=== PATIENT | male | born 1985 | race Caucasian/White ===

== ENCOUNTER 2023-01-12 15:45 | Emergency (ER) | payer BC, SELFPAY ==
[2023-01-12 15:46] VITALS: BP 159/89; PULSE 110; RESP 14; TEMP 36.4; O2SAT 97; BMI 34.2
--- NOTE | 2023-01-12 16:36 | EDS_ITS ---
HPI History of Present Illness Chief Complaint: Lower Extremity Injury Detail of Chief Complaint: Right leg pain and swelling Informant: patient Narrative Narrative: Patient presents secondary to right leg pain and swelling with concern for blood clot. Patient has a history of a DVT in his left leg years ago after a dental procedure. He states he was on Xarelto for 3 months. Eight days ago he noted similar pain in his right thigh. He states that seem to subside during the week and then returned over the weekend. He called his PCP today who referred him to the ER due to concern for recurrent blood clot. Patient does note that he has had problems with an ingrown toenail on his right great toe over the last 6 or 7 months. He already trimmed the toenail back but the area is swollen and he has noted drainage from it. [facility] Medical History benign cyst on chin Bronchitis DVT (deep venous thrombosis) Heart murmur Hypertension Strep pharyngitis Home Medications amoxicillin 875 mg-potassium clavulanate 125 mg tablet 1 tab PO BID #20 tabs 11/27/22 [Rx Last Taken Unknown] prednisone 20 mg tablet 40 mg PO DAILY #20 tabs 11/27/22 [Rx Last Taken Unknown] doxycycline monohydrate 100 mg capsule 100 mg PO BID #20 CAPSULES 01/12/23 [Rx Last Taken Unknown] Allergy/AdvReac Type Severity Reaction Status Date / Time No Known Allergies Allergy Verified 01/12/23 15:47 Family History Grandmother CAD (coronary artery disease) Grandfather CVA (cerebral vascular accident) Cancer Diabetes Father Cancer Colon cancer Hypertension Brother Seizures Social History Smoking Status: Never smoker ROS ROS ED Constitutional Constitutional ED: Denies chills or fever(s) Eyes Eyes: Denies change in vision or discharge from eye(s) ENT ENT ED: Denies discharge from eye(s), rhinorrhea or sore throat Cardiovascular Cardiovascular: Denies chest pain or palpitations Respiratory/Chest Respiratory/Chest: Denies cough or dyspnea Gastrointestinal Gastrointestinal: Denies abdominal pain, nausea or vomiting Musculoskeletal Musculoskeletal: Reports extremity pain; Denies back pain Integumentary Denies Abrasions or rash Neurologic Neurologic: Denies headache(s) or weakness Psychiatric Psychiatric: Denies anxiety or depression Allergic/Immunologic Allergic/Immunologic ED: Denies lip swelling or urticaria EXAM Physical Exam Const Vital Signs: 01/12/23 15:46 Temperature 97.6 F L Temperature Source Temporal Pulse Rate 110 H Respiratory Rate 14 Blood Pressure 159/89 H Blood Pressure Mean 112 Pulse Ox 97 Oxygen Delivery Method Room Air Positive well nourished and well developed General Appearance ED: well developed HEENT Reports normocephalic and head/scalp atraumatic Eyes PERRL and EOMs intact bilaterally Neck supple Chest Wall inspection of chest normal and palpation of chest normal Resp normal respiratory effort and clear to auscultation bilaterally Cardio regular rate and regular rhythm GI normal to inspection, nondistended, normoactive bowel sounds Palpation: soft Extremity Extremity Narrative: Mild bilateral lower extremity edema. No focal tenderness or palpable cords. Strong distal pulses. Right great toe is swollen. Ingrown toenail has already been trimmed back. No drainage at this time. Neuro oriented x3 and no sensory deficits noted Sensorium / Orientation: alert Motor Exam: strength 5/5 throughout Psych mental status grossly normal MDM MDM MDM Narrative Medical decision making narrative: Venous ultrasound of the right leg obtained to evaluate for DVT. Right foot x- ray obtained given the great toe infection to ensure no bony involvement. Lab work obtained to evaluate for leukocytosis or electrolyte derangement. Lab Data Attestation: I reviewed the patient's lab results. Labs: Laboratory Results - last 24 hr 01/12/23 01/12/23 16:40 16:40 WBC 8.0 RBC 5.15 Hgb 15.0 Hct 44.7 MCV 86.8 MCH 29.1 MCHC 33.6 RDW Std Deviation 44.6 H RDW Coeff of Shun 13.8 Plt Count 309 MPV 9.5 Immature Gran % (Auto) 0.200 Neut % (Auto) 66.0 Lymph % (Auto) 25.3 Day % (Auto) 7.9 Eos % (Auto) 0.4 Baso % (Auto) 0.2 Absolute Neuts (auto) 5.3 Absolute Lymphs (auto) 2.03 Nucleated RBC % 0 Sodium 143 Potassium 3.7 Chloride 109 H Carbon Dioxide 27.0 Anion Gap 7 BUN 19 H Creatinine 1.06 Estim Creat Clear Calc 105.74 Est GFR (MDRD) Af Amer 100 Est GFR (MDRD) Non-Af 83 BUN/Creatinine Ratio 17.9 Glucose 101 Calcium 9.4 Radiography Diagnostic Testing: Clinical Impression(s) from Imaging Studies Foot X-Ray 01/12/23 16:50 IMPRESSION: Soft tissue swelling around the first digit and dorsum of the foot. This can suggest an infectious process. Electronically Signed: Lex Cano MD at 17:20 EDT , Venous Duplex 01/12/23 17:11 IMPRESSION: There is no demonstrated deep venous thrombosis. Electronically Signed: Lex Cano MD at 18:05 EDT , Treatment and Re-Evaluation :: CBC and chemistry studies are unremarkable. Venous ultrasound of the right lower extremity reveals no evidence of DVT. Right foot x-ray per my interpretation reveals no acute bony injuries. Right great toe edema is noted. Patient will be treated with doxycycline. I will refer him to Dr. Crow, on- call for podiatry for follow-up. Return instructions given. Discharge Plan Triage Chief Complaint: Lower Extremity Injury ED Provider: Lisa Sood Dx/Rx/DC Orders Clinical Impression: Ingrown toenail of right foot with infection Instructions: ED Toenail Ingrown Infec Abx Onl Prescriptions: New doxycycline monohydrate 100 mg capsule 100 mg PO BID Qty: 20 0RF No Action prednisone 20 mg tablet 40 mg PO DAILY Qty: 20 0RF amoxicillin-pot clavulanate 875-125 mg tablet 1 tab PO BID Qty: 20 0RF Primary Care Provider: Subha Aceves NP Referrals: Elieser Crow DPM [Med Staff - Active Staff] - 1 Week Subha Aceves NP, [employer] REPAIRMAN-C [Primary Care Provider] - Disposition Disposition: Home, Self Care
--- NOTE | 2023-01-12 16:50 | RAD_ITS ---
EXAM: XR RIGHT FOOT COMPLETE, 3 OR MORE VIEWS CLINICAL INDICATION: infection INCREASE SWELLING AROUND GREAT TOE X 2 DAYS, CONCERN FOR BLOODCLOT TECHNIQUE: Frontal, lateral and oblique views of the right foot. This report was created using [employer] report generation technology. COMPARISON: None. FINDINGS: BONES/JOINTS: Unremarkable. No acute fracture. No subluxation. Normal alignment. Preservation of the joint space. No sclerotic or destructive changes observed. SOFT TISSUES: Soft tissue swelling around the first digit and dorsum of the foot. This can suggest an infectious process. No radiopaque foreign body. RAD/Foot min 3 Views IMPRESSION: Soft tissue swelling around the first digit and dorsum of the foot. This can suggest an infectious process. Electronically Signed: Lex Cano MD at 17:20 EDT Reading Location ID and State: [facility] / [place] , Service support ,
[2023-01-12 16:51] LABS: Absolute Lymphocyte Count 2.03 X10^3/uL (0.83-4.51); Absolute Neutrophil Count 5.3 X10^3/uL (2.0-7.7); Basophil# 0.02 X10^3/uL; Basophil% 0.2 % (0-1); Eosinophil# 0.03 X10^3/uL; Eosinophils% 0.4 % (0-5); Hematocrit 44.7 % (40-54); Lymphocyte # 2.03 X10^3/ul (0.83-4.51); Lymphocyte % 25.3 % (19-41); Mean Corp Hgb Conc 33.6 g/dL (32-36); Mean Corpuscular Hgb 29.1 pg (27.0-32.0); Mean Corpuscular Volume 86.8 fL (80-94); Mean Platelet Vol. 9.5 fl (6.2-12.0); Monocyte# 0.63 X10^3/uL; Monocyte% 7.9 % (0-10); NRBC Flagged by Analyzer 0 % (0-5); Neutrophil # 5.28 X10^3/uL (2.7-7.7); Platelet Count 309 K/mm3 (150-450); RBC Distribution Width CV 13.8 % (11.6-14.6); RBC Distribution Width SD 44.6 fl (35.1-43.9); Red Blood Count 5.15 M/mm3 (4.6-6.2)
[2023-01-12 17:04] LABS: Anion Gap 7 (5-15); BUN 19 mg/dL (7-18); BUN/Creat Ratio 17.9 RATIO (10-20); Calcium,Total 9.4 mg/dL (8.5-10.1); Chloride 109 mmol/L (98-107); Creatinine, Serum 1.06 mg/dL (0.70-1.30); EST Glomerular Filtration Rate 83 mL/min (>60); Est Glom Filt Rate - Afr Amer 100 mL/min (>60); Estimated Creatinine Clearance 105.74 ml/min; Glucose 101 mg/dL (74-106); Potassium 3.7 mmol/L (3.5-5.1); Sodium Level 143 mmol/L (136-145)
--- NOTE | 2023-01-12 17:11 | US_ITS ---
STUDY: VENOUS DOPPLER ULTRASOUND - RIGHT LOWER EXTREMITY REASON FOR EXAM: Male, 37 years old. LEG PAIN AND SWELLING PAIN RLE TECHNIQUE: Ultrasound evaluation of the deep vein system to include phelps-scale imaging and compression was performed. Phelps-scale imaging and Doppler sonographic evaluation, including duplex spectral analysis and qualitative color flow sonography, was performed. COMPARISON: None. FINDINGS: Common Femoral Vein: Normal compression, spontaneity and augmentation. Normal color Doppler. Common Femoral Vein/Greater Saphenous Junction: Normal compression, spontaneity and augmentation. Normal color Doppler. Superficial Femoral Proximal: Normal compression, spontaneity and augmentation. Normal color Doppler. Superficial Femoral Middle: Normal compression, spontaneity and augmentation. Normal color Doppler. Superficial Femoral Distal: Normal compression, spontaneity and augmentation. Normal color Doppler. Popliteal Vein: Normal compression, spontaneity and augmentation. Normal color Doppler. Posterior Tibial Vein: Normal compression, spontaneity and augmentation. Normal color Doppler. Peroneal Vein: Normal compression, spontaneity and augmentation. Normal color Doppler. Right inguinal lymph nodes. varicose veins noted. There is no demonstrated deep venous thrombosis. US/Venous Duplex Imag/Limited/Uni IMPRESSION: There is no demonstrated deep venous thrombosis. Electronically Signed: Lex Cano MD at 18:05 EDT ,
[2023-01-12] MEDS: Doxycycline 100 MG CAPSULE PO (18:32)
== END 2023-01-12 18:33 | disposition home or self-care (01) ==
PROVIDERS: Emergency Provider Emergency Medicine; PCP Nurse Practitioner; Visit Provider Emergency Medicine
DX: L60.0 Ingrowing nail (principal); I10 Essential (primary) hypertension
CPT/HCPCS: 73630; 80048; 85025; 93971; 99284; A4216

== ENCOUNTER → 2023-02-23 | Outpatient (CLI) | payer BC, SELFPAY | END | disposition home or self-care (01) | PROVIDERS: PCP Nurse Practitioner; Visit Provider Nurse Practitioner | DX: L03.031 Cellulitis of right toe (principal); L60.0 Ingrowing nail | CPT/HCPCS: 87070; 87077; 87186; 87205 ==

== ENCOUNTER 2024-06-08 07:38 | Emergency (ER) | payer BC, SELFPAY ==
[2024-06-08 07:39] VITALS: BP 140/109; PULSE 110; RESP 16; TEMP 36.2; O2SAT 98; BMI 32.1
--- NOTE | 2024-06-08 07:49 | VDLE_ITS ---
Reason For Study: Pain RIGHT LEFT GSV is normal. CFV is compressible, spontaneous, phasic, CFV is compressible, spontaneous, phasic, competent, and demonstrates normal competent and demonstrates normal augmentation. augmentation. FV is compressible, spontaneous, phasic, competent and demonstrates normal augmentation. POP V is compressible, spontaneous, phasic, competent and demonstrates normal augmentation. T/P Trunk is compressible. PTV is compressible. RT PerV is compressible. NONCOMPRESSIBLE Varicose Veins noted throughout Right calf. Procedure This is a venous duplex using B-mode, color flow and spectral Doppler. Exam performed portable in ED. A preliminary report was called and/or faxed to Dr. Arambula. VL/Venous Duplex US, Unilateral Interpretation Summary Acute superficial vein thrombosis noted in right calf varicosities. Deep veins of the right lower extremity are patent and compressible segmentally . There is no evidence of right lower extremity deep vein thrombosis. The right great sapheno us vein appears patent and compressible segmentally. Ordering Physician: Brayan Arambula Performed By: Ira Swift RVT, RDCS and Student
--- NOTE | 2024-06-08 07:49 | EDS_ITS ---
HPI History of Present Illness HPI Narrative: 38-year-old male prior history of DVT in his left leg. He has had right medial calf discomfort for about 2 weeks. Denies any fall injury or trauma. He initially thought it might be strained from some work that he was doing. Denies any chest pain. No hemoptysis. Denies any recent surgery or immobilization. No recent hospitalization. Chief Complaint: Lower Extremity Injury Informant: patient Onset/Context/Timing Onset: Weeks Context: Gradual Onset Timing: Continuous Quality of Pain: Dull and Aching Current Severity: Mild Maximum Severity: Mild Associated Symptoms Associated Symptoms: Negative for Parasthesia, Weakness or Loss of Funtion Narrative Narrative: 38-year-old male prior DVT left leg. He has had right medial calf discomfort fo r the last 2 weeks. Not improving. Worse with walking or standing. Better if he is just lying down. Said he did initially think it was a calf strain from using it at work. But now wants to make sure he has not developed a DVT. He denies any recent travel, surgery or immobilization. Denies any chest pain or hemoptysis. Prior similar symptoms: No Recent Illness/Hospitalization: No PFSH PFSH Medical History Heart murmur Hypertension DVT (deep venous thrombosis) benign cyst on chin Strep pharyngitis Bronchitis Allergy/AdvReac Type Severity Reaction Status Date / Time No Known Allergies Allergy Verified 06/08/24 07:40 Family History Grandmother CAD (coronary artery disease) Grandfather CVA (cerebral vascular accident) Cancer Diabetes Father Cancer Colon cancer Hypertension Brother Seizures Social History (Reviewed 02/23/23 @ 20:06 by Subha Aceves ASSOCIATE LOAN OFFICER, ASSOCIATE LOAN OFFICER-C) Smoking Status: Never smoker ROS ROS ED ROS Narrative Denies recent illness. Review of Systems ROS Unobtainable: Denies due to encephalopathy Constitutional Constitutional ED: Denies chills or fever(s) Eyes Eyes: Denies blurry vision ENT ENT ED: Denies ear pain Cardiovascular Cardiovascular: Denies chest pain Respiratory/Chest Respiratory/Chest: Denies cough Gastrointestinal Gastrointestinal: Denies abdominal pain Genitourinary Genitourinary ED: Denies dysuria or hematuria Musculoskeletal Musculoskeletal: Denies arthralgias Integumentary Denies abscess Neurologic Neurologic: Denies headache(s) Psychiatric Psychiatric: Denies anxiety Endocrine Endocrinology: Denies polydipsia Hematologic/Lymphatic Hematologic/Lymphatic: Denies easy bleeding Allergic/Immunologic Allergic/Immunologic ED: Denies mouth swelling EXAM Physical Exam Narrative Exam Narrative: Well-appearing 38-year-old male. Vital signs stable afebrile. Pulse ox 98% on room air no hypoxia. No distress. H EENT exam unremarkable. Neck nontender. Lungs clear to auscultation bilaterally. Heart regular rhythm rate about 100 no murmur. Chest wall and ribs nontender. Abdomen soft nontender. Moving all 4 extremities. 5/5 parliamentary counsel strength. Dorsi plantarflexion intact. Equal symmetrical DP pulses. He has full flexion extension of both hips, knees and ankles. Dorsi and plantarflexion is intact. The right medial calf there is mild swelling and tenderness. No obvious varicose veins. No cellulitis or abscess. It is only minimally tender. There is no redness or warmth. This could be a varicose vein it could be a blood clot could be a soft tissue inflammation. It does not appear to be infected. Patient is awake and alert. Answering questions and following commands Const Vital Signs: 06/08/24 07:39 Temperature 97.2 F L Temperature Source Temporal Pulse Rate 110 H Respiratory Rate 16 Blood Pressure 140/109 H Blood Pressure Mean 119 Pulse Ox 98 Oxygen Delivery Method Room Air Positive well nourished and well developed; Negative for cachectic, contractures or unkempt General Appearance ED: well developed and NAD; Negative for unkempt, cachectic or contractures Nutritional Appearance: Negative for cachectic HEENT Reports moist mucous membranes normocephalic and atraumatic; Negative for trauma or tenderness Eyes PERRL Neck full ROM and supple Lymph Lymphatic: Negative for other Chest Wall inspection of chest normal and palpation of chest normal Resp normal respiratory effort, no retractions and clear to auscultation bilaterally Effort and Inspection: Negative for pain with movement Auscultation: Negative for rales, rhonchi, wheezes or diminished lung sounds Cardio regular rate, regular rhythm, S1 normal heart sound, S2 normal heart sound and no murmurs Rate: Negative for bradycardia Rhythm: Negative for abnormal rhythm GI non-tender, non-distended and no masses Inspection: Negative for abdominal distention Auscultation: normoactive bowel sounds Palpation: soft; Negative for tender, guarding or rebound tenderness present Back/Spine no CVA tenderness General Back: Negative for CVA tenderness Cervical Spine: Negative for cervical spine tenderness Thoracic Spine / Upper Back: Negative for thoracic spinal tenderness Lumbar Spine / Lower Back: Negative for lumbar spinal tenderness Extremity normal to inspection and full ROM Extremity Narrative: Except right leg right mid calf medially is an area of swelling and tenderness. No redness or warmth. No lymphangitic streaking. Right foot is neurovascularly intact with normal dorsi plantarflexion. Normal sensation. Able to wiggle his toes. Normal DP pulse. His right ankle is swollen compared to the left. He has got no inguinal lymphadenopathy. General Extremety ED: Yes edema; Negative for cyanosis General Extremity: edema; Negative for cyanosis Neuro oriented x3, CN's II-XII intact bilaterally, moves all extremities and no sensory deficits noted Sensorium / Orientation: alert, oriented to person, oriented to place and oriented to time; Negative for orientation impaired or confused Motor Exam: strength 5/5 throughout Psych mental status grossly normal Appearance: Negative for unkempt Speech: No other Mood & Affect: Negative for anxious Skin no wounds Lesions: no lesions Rashes: no rashes Trauma: Negative for abrasion or laceration MDM MDM MDM Narrative Medical decision making narrative: 38-year-old male prior left leg DVT 2-week history of right leg pain and swelling in the right medial calf. No history of trauma I do not feel he needs any x-rays. Does not appear to be infected. I do not think needs any labs. A venous study of his right leg will be obtained to evaluate for possible DVT. Repeat exam patient doing well at 8:25 AM. We discussed his ultrasound result of his leg. He will be started on an aspirin a day. Warm compresses or heating pad to his right calf. Motrin and/or Tylenol for pain. Follow-up with his primary care physician to ensure this is improving or for repeat ultrasound if it is getting worse to ensure it is not propagating into the deep vein system. Patient is comfortable with the plan. History & Record Review Discussion w/independent historian: Patient Additional record(s) reviewed:: Prior inpatient record, Prior outpatient record, Prior ED visit, Prior labs and No prior records Lab Data Lab results narrative: Noninvasive venous study right lower extremity as interpreted by the surveying technician shows a superficial blood clot in the right calf varicose vein. No DVT. Discharge Plan Triage Chief Complaint: Lower Extremity Injury ED Provider: Brayan Arambula Dx/Rx/DC Orders Clinical Impression: Superficial thrombophlebitis Instructions: ED Thrombophlebitis, Superficial Primary Care Provider: Subha Aceves NP Referrals: Subha Aceves NP, ASSOCIATE LOAN OFFICER-C [Primary Care Provider] - (Follow-up with your nurse practitioner in 2 to 4 weeks to ensure this is improving. If it is getting worse he should Ryaltris on your leg.) Activity Restrictions/Additional Instructions: You have a small blood clot in the superficial varicose vein of your right calf. This does not need a blood thinner. These usually resolve. Heating pad or warm compress to the area. Motrin to decrease inflammation and help with the pain. Start 1 adult aspirin a day until this goes away. This will help thin out your blood a little bit. Follow-up with your primary care provider to ensure this is improving if it is getting worse and he should reultrasound your leg. At this time you do not need to be started on a blood thinner if it would get into the deep vein system that it would be a possibility. Print Language: Mongolian Disposition Disposition: Home, Self Care
[2024-06-08 08:32] VITALS: BP 124/67; PULSE 73; RESP 15; TEMP 36.3; O2SAT 100
== END 2024-06-08 08:33 | disposition home or self-care (01) ==
PROVIDERS: Emergency Provider Emergency Medicine; PCP Nurse Practitioner; Visit Provider Emergency Medicine
DX: I80.01 Phlebitis and thrombophlebitis of superficial vessels of right lower extremity (principal)
CPT/HCPCS: 93971; 99282